=== PATIENT | female | born 1970 | race Caucasian/White ===

== ENCOUNTER 2018-04-20 12:11 | Outpatient (CLI) | payer OTHER, SELFPAY ==
[2018-04-20 14:21] LABS: TSH (W/Ref FT4) 1.43 uIU/mL (0.358-3.74)
== END 2018-04-20 12:31 ==
PROVIDERS: PCP Nurse Practitioner Family; Visit Provider Family Medicine
DX: E06.0 Acute thyroiditis (principal)
CPT/HCPCS: 36415; 84443

== ENCOUNTER 2018-04-21 00:36 | Outpatient (CLI) | payer OTHER, SELFPAY ==
--- NOTE | 2018-04-21 07:02 | DI.US_ITS ---
SYMPTOM/DIAGNOSIS: NECK PAIN LOCALIZED TO THYROID, ACUTE THYROIDITIS, E06.0 THYROID ULTRASOUND: The right thyroid lobe measures 5.1 by 1.4 by 1.3 cm. The isthmus is 2.8 mm. in thickness. The left thyroid lobe measures 4.4 by 0.9 by 1.4 cm. and contains two adjacent small nodules or a lobulated nodule in its lower pole measuring .7 by 5.5 by 0.4 cm. The acoustical texture of the remainder of the gland is unremarkable. SUMMARY: A left lower pole thyroid nodule is demonstrated. 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 I could not exclude the possibility of a malignancy in this patient and further assessment with an ultrasound guided biopsy should be considered.
[2018-04-21 16:25] LABS: Abs Immature Grans 0.01 k/cumm (0.0-0.09); Absolute Basophil Count 0.05 k/cumm (0.0-0.2); Absolute Eosinophil Count 0.17 k/cumm (0.0-0.7); Absolute Lymphocyte Count 2.85 k/cumm (1.2-3.4); Absolute Monocyte Count 0.46 k/cumm (0.11-0.7); Absolute Neutrophil Count 3.24 k/cumm (1.2-6.7); Basophils % 0.7; Eosinophils % 2.5; HCT 36.7 % (36.0-46.0); HGB 12.3 g/dL (12.0-15.5); Immature Grans % 0.1; Mean Corp. HGB Concentration 33.5 g/dL (32.0-36.0); Mean Corpuscular Hemoglobin 28.7 pg (27.0-33.0); Mean Corpuscular Volume 85.7 fL (80-95); Mean Platelet Volume 11.2 fL (8.0-11.0); Monocytes % 6.8; Neutrophils % 47.9; Platelet Count 209 x1000/uL (130-400); RBC 4.28 m/cumm (4.00-5.20); RBC Distribution Width 12.9 % (11.7-14.6); White Blood Cell Count 6.78 k/cumm (4.4-10.8)
== END 2018-04-21 00:56 ==
PROVIDERS: PCP Nurse Practitioner Family; Visit Provider Family Medicine
DX: E06.0 Acute thyroiditis (principal); E04.1 Nontoxic single thyroid nodule; M54.2 Cervicalgia
CPT/HCPCS: 36415; 76536; 85025

== ENCOUNTER 2018-04-28 01:06 | Outpatient (CLI) | payer OTHER, SELFPAY ==
--- NOTE | 2018-04-28 08:06 | DI.NM_ITS ---
SYMPTOM/DIAGNOSIS: THYROID NODULES SEEN ON US THYROID UPTAKE AND SCAN I 123: : 04/28/18 Thyroid uptake and scan was performed with ingestion of 280 mCi of I-123 labeled sodium iodide in capsule form. Thyroid scan was performed at 6 hours and shows normal homogeneous thyroid uptake. 24 hour delayed uptake determination shows uptake 34% which is at the upper limits of the normal range. CONCLUSION: Normal thyroid uptake and scan.
== END 2018-04-28 01:26 ==
PROVIDERS: PCP Nurse Practitioner Family; Visit Provider Family Medicine
DX: E04.2 Nontoxic multinodular goiter (principal)
CPT/HCPCS: A9516

== ENCOUNTER 2018-04-29 01:12 | Outpatient (CLI) | payer OTHER, SELFPAY ==
--- NOTE | 2018-04-29 08:46 | DI.NM_ITS ---
SYMPTOM/DIAGNOSIS: F/U THYROID NODULES ON US THYROID UPTAKE AND SCAN: Thyroid uptake and scan was performed with ingestion of 280 mCi of I-123 labeled Sodium iodide in capsule form. Thyroid scan was performed at 6 hours and shows normal homogeneous thyroid uptake. 24 hour delayed uptake determination shows uptake 34$ which is at the upper limits of the normal range. CONCLUSION: Normal thyroid uptake and scan.
== END 2018-04-29 01:32 ==
PROVIDERS: PCP Nurse Practitioner Family; Visit Provider Family Medicine
DX: E04.2 Nontoxic multinodular goiter (principal)
CPT/HCPCS: 78014; A9512